=== PATIENT | female | born 1960 | race Caucasian/White ===

== ENCOUNTER → 2022-09-09 | Day surgery (SDC) | payer SELFPAY ==
[2022-09-08 13:44] LABS: BASOPHILS # (AUTO) 0.1 (0.0-0.1); EOSINOPHILS # (AUTO) 0.1 (0.0-0.4); EOSINOPHILS % 1.9 % (0.0-6.0); HEMATOCRIT 46.8 % (34.2-44.1); HEMOGLOBIN 14.4 g/dL (12.0-16.0); LYMPHOCYTES # (AUTO) 2.2 (1.0-3.2); LYMPHOCYTES % 35.3 % (18.0-39.1); MEAN CORPUSCULAR HEMOGLOBIN 29.1 pg (28-32); MEAN CORPUSCULAR HGB CONC 30.8 g/dL (31-35); MEAN CORPUSCULAR VOLUME 94.7 fL (81-99); MONOCYTES # (AUTO) 0.6 (0.2-0.8); MONOCYTES % 9.3 % (4.4-11.3); NEUTROPHILS # (AUTO) 3.2 (2.1-6.9); NEUTROPHILS % 52.2 % (38.7-80.0); PLATELET COUNT 188 x10e3/uL (140-360); RED BLOOD COUNT 4.94 x10e6/uL (3.6-5.1); RED CELL DISTRIBUTION WIDTH 13.1 % (11.7-14.4)
[2022-09-08 14:03] LABS: ANION GAP 14.4 mmol/L (8-16); CALCIUM 8.9 mg/dL (8.4-10.2); CREATININE, SERUM 0.86 mg/dL (0.57-1.11); POTASSIUM 4.4 mmol/L (3.5-5.1)
[~2022-09-09] MED LIST: BUPIVACAINE HCL 0.5% INJ 30 ML VIAL INJ ONE; CEFAZOLIN SODIUM 2 GM ONE; DEXAMETHASONE SOD PHOS INJ 4 MG/ML SDV ONE; EPHEDRINE SULFATE INJ 50 MG/ML VIAL ONE; FENTANYL CITRATE/PF 100MCG/2 ML INJ ONE; KETOROLAC TROMETHAMINE 30 MG/ML VIAL ONE; LIDOCAINE HCL 2% LOCAL INJ 5 ML SDV VIAL INJ ONE; METOCLOPRAMIDE HCL 10 MG/2ML VIAL ONE; NEOSTIGMINE 1 MG/ML 10ML VIAL ONE; ONDANSETRON HCL INJ 2MG/ML 2ML 2 MG/ML VIAL ONE; POVIDONE IODINE 0.05% 0.05 % ML PO ONE; PROPOFOL IV EMULSION 10 MG/ML 20 ML VIAL ONE; SEVOFLURANE INHAL SOLN 250 ML PEN BTL ONE
[2022-09-09 12:39] VITALS: BP 119/71
== END | disposition home or self-care (01) ==
LOC: OR 07:12
PROVIDERS: ATTEND Podiatrist Foot Surgery
DX: M72.2 Plantar fascial fibromatosis (principal); Z88.6 Allergy status to analgesic agent; Z01.810 Encounter for preprocedural cardiovascular examination; Z01.812 Encounter for preprocedural laboratory examination; Z01.818 Encounter for other preprocedural examination
CPT/HCPCS: 28062; 36415; 71046; 76000; 80048; 85025; 88304; 88311; 93005; J1100; J1885; J2001; J2405; J2704; J2710; J2765; J3010